=== PATIENT | female | born 1995 | race African-American/Black ===

== ENCOUNTER 2018-01-17 10:04 | Emergency (ER) | payer SELFPAY ==
[2018-01-17 10:35] VITALS: BP 120/62; PULSE 60; TEMP 98.4; BMI 36.1
--- NOTE | 2018-01-17 11:35 | PDOC ---
History of Present Illness - General Chief Complaint: Sore Throat Stated Complaint: SORE THROAT Time Seen by Provider: 01/17/18 11:14 History Source: Patient Exam Limitations: No Limitations - History of Present Illness Initial Comments: 01/17/18 11:35 HISTORY OF PRESENT ILLNESS: [id number] woman past medical history with 4 days of progressively worsening sore throat and sublingual lymphadenopathy. Patient reports upon arrival to the emergency department the pain progressed from throat to the right side of her face. She denies any headaches or dizziness. She denies hearing loss or any discharge from her ears. Patient does report mild nausea which does not interfere with activities of daily living including eating. Patient has not vomited. No recent travel or sick contacts. PAST MEDICAL HISTORY: Denies past medical history SURGICAL HISTORY: Denies ALLERGIES: clindamycin REVIEW OF SYSTEMS General/Constitutional: Denies fever or chills. Denies weakness, weight change. HEENT: Denies change in vision. Denies ear pain or discharge. +sore throat. + "swollen glands" Cardiovascular: Denies chest pain or shortness of breath. Respiratory: Denies cough, wheezing, or hemoptysis. Gastrointestinal: Denies vomiting, diarrhea or constipation. Denies rectal bleeding. +nausea Genitourinary: Denies dysuria, frequency, or change in urination. Musculoskeletal: Denies joint or muscle swelling or pain. Denies neck or back pain. Skin and breasts: Denies rash or easy bruising. Neurologic: Denies headache, vertigo, loss of consciousness, or loss of sensation. Psychiatric: Denies depression or anxiety. Endocrine: Denies increased thirst. Denies abnormal weight change. Hematologic/Lymphatic: Denies anemia, easy bleeding, or history of blood clots. +"swollen glands" Allergic/Immunologic: Denies hives or skin allergy. Denies latex allergy. PHYSICAL EXAM General Appearance: Well-appearing, appropriately dressed. No apparent distress , no intoxication. HEENT: EOMI, PERRLA, normal ENT inspection, normal voice, TMs normal. No conjunctival pallor. No photophobia, scleral icterus. Oropharynx with 3+ erythematous tonsils with exudate present. Neck: Supple. Trachea midline. No tenderness, rigidity, carotid bruit, stridor , or thyromegaly. Tender anterior cervical lymphadenopathy present. Respiratory/Chest: Lungs CTAB. No shortness of breath, chest tenderness, respiratory distress, accessory muscle use. No crackles, rales, rhonchi, stridor , wheezing, dullness Cardiovascular: RRR. S1, S2. No JVD, murmur, bradycardia, tachycardia. Gastrointestinal/Abdominal: Normal bowel sounds. Abdomen soft, non-distended. No tenderness or rebound tenderness. No organomegaly, pulsatile mass, guarding, hernia, hepatomegaly, splenomegaly. Past History - Past Medical History Allergies/Adverse Reactions: Allergies Allergy/AdvReac Type Severity Reaction Status Date / Time clindamycin Allergy Severe Hives Verified 01/17/18 10:32 Home Medications: Ambulatory Orders Amoxicillin - [Amoxicillin 500mg Capsule -] 500 mg PO BID #20 capsule 01/17/18 COPD: No - Immunization History Immunization Up to Date: Yes - Suicide/Smoking/Psychosocial Hx Smoking History: Current some day smoker Information on smoking cessation initiated: No Hx Alcohol Use: Yes Drug/Substance Use Hx: No *Physical Exam - Vital Signs Last Vital Signs Temp Pulse Resp BP Pulse Ox 98.4 F 60 18 120/62 100 01/17/18 10:33 01/17/18 10:33 01/17/18 10:33 01/17/18 10:33 01/17/18 10:33 Moderate Sedation - Procedure Monitoring Vital Signs: Procedure Monitoring Vital Signs Temperature 98.4 F 01/17/18 10:33 Pulse Rate 60 01/17/18 10:33 Respiratory Rate 18 01/17/18 10:33 Blood Pressure 120/62 01/17/18 10:33 O2 Sat by Pulse Oximetry (%) 100 01/17/18 10:33 Medical Decision Making - Medical Decision Making 01/17/18 11:29 A/P: 23-year-old female with denies medical history with 4 days of sore throat Oropharynx with 3+ erythematous tonsils with exudate present bilaterally Tender anterior cervical lymphadenopathy present Halitosis present Lungs clear to auscultation bilaterally Abdomen soft nontender nondistended Physical exam is consistent with streptococcal pharyngitis. I will defer testing at this time is based on physical exam patient will get antibiotics for treatment even on a negative rapid strep test. Patient is in agreement with plan and discharge instructions have been verbalized by patient. *DC/Admit/Observation/Transfer Diagnosis at time of Disposition: Pharyngitis Qualifiers: Pharyngitis/tonsillitis etiology: unspecified etiology Qualified Code(s): J02.9 - Acute pharyngitis, unspecified - Discharge Dispostion Disposition: HOME Condition at time of disposition: Stable Decision to Admit order: No - Prescriptions Prescriptions: Amoxicillin - [Amoxicillin 500mg Capsule -] 500 mg PO BID #20 capsule - Referrals - Patient Instructions Additional Instructions: Take amoxicillin as prescribed. Salt water garggles. Throw away your toothbrush in 3 days and start using a new toothbrush. No sharing of drinks, utensils or toothbrushes. 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 Return to ED for worsening fevers, worsening sore throat, chest pain, shortness of breath or any other concerns. - Post Discharge Activity
== END 2018-01-17 11:30 | disposition home or self-care (01) ==
LOC: JERFT 10:04
DX: J02.9 Acute pharyngitis, unspecified (principal)
CPT/HCPCS: 99281-25

== ENCOUNTER 2020-06-22 10:09 | Emergency (ER) | payer OTHER ==
[2020-06-22] MEDS ORDERED: IBUPROFEN 600 MG TABLET (FP) PO ONE ×2 (10:47→12:04)
[2020-06-22 10:54] VITALS: BP 144/77; PULSE 88; TEMP 98.6; BMI 41.3
[2020-06-22 11:08] LABS: BASO % 0.5 % (0-2.0); EOS % 1.3 % (0-4.5); HEMATOCRIT 35.8 % (32.4-45.2); MCH 28.1 pg (25.7-33.7); MCHC 33.6 g/dl (32.0-36.0); MEAN CELL VOLUME 83.7 fl (80-96); MEAN PLT VOLUME 8.4 fl (7.5-11.1); MONO % 8.5 % (3.8-10.2); NEUT % 74.7 % (42.8-82.8); PLATELET COUNT 292 K/MM3 (134-434); RBC 4.28 M/mm3 (3.60-5.2); RDW 15.2 % (11.6-15.6); WHITE BLOOD COUNT 7.6 K/mm3 (4.0-10.0)
[2020-06-22 12:09] LABS: ALBUMIN 3.1 g/dl (3.4-5.0); BILIRUBIN,TOTAL 0.9 mg/dL (0.2-1); BLOOD UREA NITROGEN 7.8 mg/dL (7-18); CALCIUM 8.7 mg/dL (8.5-10.1); CREATININE 0.8 mg/dL (0.55-1.3); TOT PROT 7.1 g/dl (6.4-8.2)
== END 2020-06-22 12:11 | disposition home or self-care (01) ==
LOC: JER 10:09
DX: R22.1 Localized swelling, mass and lump, neck (principal)
CPT/HCPCS: 36415; 70491-TC; 80053; 84443; 85025; 99285-25; Q9967

== ENCOUNTER 2021-01-22 17:13 | Emergency (ER) | payer OTHER ==
[2021-01-22 17:24] VITALS: BP 125/81; PULSE 75; TEMP 98; BMI 36.1
[2021-01-22 18:53] LABS: BASO % 0.8 % (0-2.0); HEMATOCRIT 36.6 % (32.4-45.2); HEMOGLOBIN 12.4 GM/dL (10.7-15.3); LYMPH % 38.8 % (8-40); MCH 27.2 pg (25.7-33.7); MCHC 33.8 g/dl (32.0-36.0); MEAN CELL VOLUME 80.6 fl (80-96); MEAN PLT VOLUME 7.9 fl (7.5-11.1); MONO % 7.7 % (3.8-10.2); NEUT % 50.7 % (42.8-82.8); PLATELET COUNT 272 10^3/uL (134-434); RBC 4.53 M/mm3 (3.60-5.2); RDW 14.5 % (11.6-15.6); WHITE BLOOD COUNT 6.1 K/mm3 (4.0-10.0)
[2021-01-22 18:59] LABS: CHLORIDE 104 mmol/L (98-107); SODIUM 139 mmol/L (136-145)
[2021-01-22 19:01] LABS: ANION GAP 6 MMOL/L (8-16); CALCIUM 9.4 mg/dL (8.5-10.1); CO2 29 mmol/L (21-32); GLUCOSE,RANDOM 77 mg/dL (74-106)
[2021-01-22 19:03] LABS: CREATININE 0.7 mg/dL (0.55-1.3); SGOT/AST 21 U/L (15-37); SGPT/ALT 19 U/L (13-61)
[2021-01-22 19:06] LABS: BILIRUBIN,TOTAL 0.4 mg/dL (0.2-1); TOT PROT 8.3 g/dl (6.4-8.2)
[2021-01-22 19:07] LABS: ALK PHOS 63 U/L (45-117)
== END 2021-01-22 19:41 | disposition home or self-care (01) ==
LOC: JER 17:13
DX: N92.0 Excessive and frequent menstruation with regular cycle (principal)
CPT/HCPCS: 36415; 80053; 84702; 85025; 86850; 86900; 86901; 99283-25

== ENCOUNTER 2024-01-01 08:50 | Inpatient (IN) | payer OTHER ==
[2024-01-01] MEDS ORDERED: FLUORESCEIN NA 1 EA STRIP ONE (09:14)
[2024-01-01] MEDS ORDERED: TETRACAINE 0.5% OPHTH SOLN 2 ML BOTTLE ONE (09:14)
[2024-01-01] MEDS: FLUORESCEIN NA 1 EA STRIP OS ONE (09:39)
[2024-01-01] MEDS: valACYclovir HCL 500 MG TABLET (FP) PO ONE (10:37)
[2024-01-01] MEDS ORDERED: valACYclovir HCL 500 MG TABLET (FP) ONE (10:37)
[2024-01-01] MEDS ORDERED: KETOROLAC TROMETHAMINE 15 MG/ML VIAL IVPUSH PRN (12:43)
[2024-01-01 13:14] LABS: BASO % 0.3 % (0-2.0); EOS % 0.1 % (0-4.5); HEMATOCRIT 42.7 % (32.4-45.2); HEMOGLOBIN 14.2 GM/dL (10.7-15.3); LYMPH % 23.2 % (8-40); MCH 27.1 pg (25.7-33.7); MCHC 33.3 g/dl (32.0-36.0); MEAN CELL VOLUME 81.3 fl (80-96); MONO % 8.3 % (3.8-10.2); NEUT % 68.1 % (42.8-82.8); PLATELET COUNT 186 10^3/uL (134-434); RBC 5.25 M/mm3 (3.60-5.2); RDW 13.8 % (11.6-15.6); WHITE BLOOD COUNT 3.9 K/mm3 (4.0-10.0)
[2024-01-01 14:01] LABS: BLOOD UREA NITROGEN 12.5 mg/dL (7-18); CALCIUM 9.1 mg/dL (8.5-10.1)
[2024-01-01 14:04] LABS: CREATININE 0.7 mg/dL (0.55-1.3)
[2024-01-01 14:06] LABS: BILIRUBIN,TOTAL 0.8 mg/dL (0.2-1); TOT PROT 8.2 g/dl (6.4-8.2)
[2024-01-01] MEDS: Acyclovir Sodium 1,000 MG in DEXTROSE 5%-WATER - 250 ML IVPB SCH (17:16)
[2024-01-01 17:57] VITALS: RESP 18; BMI 37.8
[2024-01-01] MEDS ORDERED: ACYCLOVIR INJECTION 800 MG in DEXTROSE 5%-WATER - 100 ML IVPB ONE (18:00)
[2024-01-01] MEDS ORDERED: ACYCLOVIR 1000 MG (50MG/ML) VIAL IVPB SCH (18:00)
[2024-01-02] MEDS: ENOXAPARIN NA (PORCINE) 40 MG/0.4 ML DISP.SYRIN SQ SCH (09:27)
[2024-01-02 09:46] LABS: HEMATOCRIT 40.4 % (32.4-45.2); HEMOGLOBIN 13.4 GM/dL (10.7-15.3); MCH 26.9 pg (25.7-33.7); MCHC 33.1 g/dl (32.0-36.0); MEAN CELL VOLUME 81.3 fl (80-96); MEAN PLT VOLUME 8.1 fl (7.5-11.1); PLATELET COUNT 171 10^3/uL (134-434); RBC 4.97 M/mm3 (3.60-5.2); RDW 13.2 % (11.6-15.6); WHITE BLOOD COUNT 7.1 K/mm3 (4.0-10.0)
[2024-01-02 10:11] LABS: POTASSIUM 3.6 mmol/L (3.5-5.1)
[2024-01-02 10:12] LABS: ALBUMIN 3.8 g/dl (3.4-5.0); CALCIUM 8.9 mg/dL (8.5-10.1)
[2024-01-02 10:13] LABS: BLOOD UREA NITROGEN 12.6 mg/dL (7-18)
[2024-01-02 10:17] LABS: BILIRUBIN,TOTAL 0.8 mg/dL (0.2-1); TOT PROT 7.7 g/dl (6.4-8.2)
[2024-01-02] MEDS: ACETAMINOPHEN 325 MG TABLET (FP) PO PRN (11:46)
[2024-01-02] MEDS: SODIUM CHLORIDE 250 ML IV ONE (15:13)
[2024-01-03 09:13] LABS: POTASSIUM 3.7 mmol/L (3.5-5.1)
[2024-01-03 09:21] VITALS: BP 121/74; PULSE 60; TEMP 98.8
[2024-01-03 09:23] LABS: ALBUMIN 3.6 g/dl (3.4-5.0); BLOOD UREA NITROGEN 10.8 mg/dL (7-18); MAGNESIUM 2.1 mg/dL (1.8-2.4)
[2024-01-03 09:26] LABS: PHOSPHOROUS 3.9 mg/dL (2.5-4.9)
[2024-01-03 09:27] LABS: BILIRUBIN,TOTAL 0.7 mg/dL (0.2-1)
[2024-01-03 09:28] LABS: TOT PROT 7.6 g/dl (6.4-8.2)
[2024-01-03 11:00] LABS: BASO % 0.3 % (0-2.0); EOS % 0.2 % (0-4.5); HEMOGLOBIN 12.9 GM/dL (10.7-15.3); LYMPH % 31.6 % (8-40); MCH 27.3 pg (25.7-33.7); MCHC 33.8 g/dl (32.0-36.0); MEAN CELL VOLUME 80.8 fl (80-96); MEAN PLT VOLUME 8.6 fl (7.5-11.1); MONO % 13.1 % (3.8-10.2); NEUT % 54.8 % (42.8-82.8); PLATELET COUNT 166 10^3/uL (134-434); RBC 4.71 M/mm3 (3.60-5.2); RDW 13.8 % (11.6-15.6); WHITE BLOOD COUNT 4.4 K/mm3 (4.0-10.0)
== END 2024-01-03 11:17 | disposition short-term general hospital (02) | DRG 80 ==
LOC: JER 08:50 → JERBED 11:31 → J6S 16:30
PROVIDERS: ADMIT Internal Medicine
DX: B02.39 Other herpes zoster eye disease (principal); Z20.6 Contact with and (suspected) exposure to human immunodeficiency virus [HIV]
CPT/HCPCS: 36415; 80048; 80053; 83735; 84100; 84443; 85025; 85027; 85730; 86359; 86360; 86787; 87536; 87635; 99285-25